=== PATIENT | female | born 1950 | race Caucasian/White ===

== ENCOUNTER 2017-03-12 11:42 | Emergency (ER) | payer OTHER ==
[~2017-03-12] VITALS: Ht 144.8 cm; Wt 37.2 kg
[~2017-03-12 11:42] MED LIST: ALBUTEROL1.25 MG/1 INH/SOL; ALBUTEROL2.5 MG/3 M INH/SOL; ALENDRONATE SOD70 M2 PO; ASPIRIN81 M4 PO; ATENOLOL50 M1 PO; LEVAQUIN500 M1 PO; LISINOPRIL20 M1 PO; PRAVASTATIN SOD20 M2 PO; PREDNISONE 10MG10 M1 PO; PREDNISONE10 M2 PO; PREDNISONE10 MG PO; PREDNISONE50 M1 PO; PROAIR HFA8.5 GM INH; TESSALON PERLE100 MG PO; TYLENOL EXTRA500 M2 PO; VENTOLIN HFA18 GM INH; VITAMIN D1000 UNIT PO; ZITHROMAX Z-PA250 M1 PO
[2017-03-12 11:45] VITALS: BP 134/90
[2017-03-12] MEDS ORDERED: SPIRIVA18 MCG INH (12:14)
[2017-03-12] MEDS ORDERED: BREO ELLIPTA 21 EACH PO (12:14)
[2017-03-12] MEDS ORDERED: PHENAZOPYRIDIN200 M3 PO (12:17)
--- NOTE | 2017-03-12 12:20 | ED GENERAL ADULT ---
History of Present Illness General Chief Complaint: Female Urogenital Problems Stated Complaint: ?UTI Source: patient Exam Limitations: no limitations Vital Signs & Intake/Output Vital Signs & Intake/Output Vital Signs Date Time Temp Pulse Resp B/P B/P Pulse O2 O2 Flow FiO2 Mean Ox Delivery Rate 03/12 1145 96.1 77 20 134/90 96 Room Air Allergies Coded Allergies: fluoxetine (From PROZAC) (Intermediate, HIVES 03/31/16) cyclobenzaprine (HIVES 03/31/16) ibuprofen (HIVES 03/31/16) Reconcile Medications Acetaminophen (Tylenol Extra Strength) 500 MG TABLET 1 TAB PO PAIN (Reported) Albuterol Sulfate (Proair Hfa) 8.5 GM HFA.AER.AD 2 PUF INH Q4-6 PRN PRN BREATHING PROBLEMS (Reported) Alendronate Sodium 70 MG TABLET 1 TAB PO QTUES BONE (Reported) in the morning, at least 30 minutes before the first food, beverage, or medication of the day Aspirin (Aspirin*) 81 MG TAB.CHEW 1 TAB PO DAILY HEART HEALTH (Reported) Atenolol 50 MG TABLET 1 TAB PO QPM HEART (Reported) Cephalexin (Keflex) 500 MG CAPSULE 1 CAP PO 4 TIMES/DAY UTI Cholecalciferol (Vitamin D3) (Vitamin D) 1,000 UNIT TABLET 1 TAB PO DAILY SUPPLEMENT (Reported) Fluticasone/Vilanterol (Breo Ellipta 200-25 Mcg INH) 200 MCG-25 MCG/DOSE BLST.W.DEV 1 PUFF PO DAILY BREATHING PROBLEMS (Reported) Lisinopril 20 MG TABLET 1 TAB PO DAILY HEART (Reported) Phenazopyridine HCl 200 MG TABLET 1 TAB PO TID PRN UTI (Reported) after food Phenazopyridine HCl (Pyridium) 100 MG TABLET 1 TAB PO TID dysuria Pravastatin Sodium 20 MG TABLET 1 TAB PO QPM CHOLESTEROL (Reported) Tiotropium [place] (Spiriva) 18 MCG CAP.W.DEV 1 CAP INH DAILY BREATHING PROBLEMS (Reported) Triage Note: PT TO ED C/O ? UTI. STATES BURNING WITH URINATION WELL BLOOD IN URINE. STARTED LAST NIGHT. PT HAD PYRIDIUM AT HOME, TOOK A DOSE LAST NIGHT. Triage Nurses Notes Reviewed? yes HPI: 66-year-old female with a history of recurrent headaches, hypertension, hyperlipidemia, COPD, osteoporosis, depression presenting with dysuria, hematuria, urinary frequency/urgency that started last night. Denies fevers, nausea, vomiting, abdominal pain, back pain, or vaginal discharge. (MATHEW SHIN,LITTLE) Past History Travel History Traveled to [place] past 21 day No Medical History Any Pertinent Medical History? 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 No (MATHEW SHIN,LITTLE) Review of Systems Review of Systems Constitutional: Denies: chills, fever, malaise, weakness. Respiratory: Reports: no symptoms. Cardiovascular: Reports: no symptoms. GI: Denies: abdominal pain, constipation, diarrhea, nausea, vomiting. Genitourinary: Reports: dysuria, frequency, hematuria, urgency. Denies: discharge. (MATHEW SHIN,LITTLE) Physical Exam Physical Exam General Appearance: well developed/nourished, no apparent distress, comfortable Head: atraumatic Respiratory: normal breath sounds, lungs clear Cardiovascular: regular rate/rhythm Gastrointestinal: soft, non-tender Rectal: No CVAT Core Measures ACS in differential dx? No CVA/TIA Diagnosis: No Severe Sepsis Present: No Septic Shock Present: No (LITTLE CARMONA PA-C) Progress Differential Diagnoses I considered the following diagnoses in my evaluation of the patient: [UTI versus pyelonephritis versus cervicitis versus PID] Plan of Care: Orders Procedure Date/time Status URINALYSIS 03/12 1147 Complete Laboratory Tests 03/12/17 1150: Urine Color DELLA, Urine Clarity HAZY H, Urine pH 6.0, Ur Specific [place] 1.015, Urine Protein 30 H, Urine Ketones NEG, Urine Nitrite POS H, Urine Bilirubin NEG, Urine Urobilinogen 1.0, Ur Leukocyte Esterase MOD H, Ur Microscopic SEDIMENT EXAMINED, Urine RBC 5-10 H, Urine WBC 50-75 H, Ur Epithelial Cells RARE, Urine Bacteria RARE H, Urine Mucus RARE, Urine Hemoglobin MOD H, Urine Glucose NEG Urine consistent with urinary tract infection, no signs of pyelonephritis including no CVA tenderness, fevers, nausea, vomiting. Given first dose Keflex ED, sent home with Rx for Keflex course. (LITTLE CARMONA PA-C) Initial ED EKG: none (LITTLE CARMONA PA-C) Departure Departure Disposition: HOME OR SELF CARE Condition: Stable Clinical Impression Primary Impression: UTI (urinary tract infection) Referrals: [facility] (PCP/Family) Additional Instructions: Take 500 mg of Keflex by mouth 4 times daily for 5 days. Take 100 mg of Pyridium by mouth 3 times daily for 2 days. Follow-up with her primary care provider for reevaluation in 2 days. Return to the ED for any new or worsening symptoms. Departure Forms: Customer Survey General Discharge Information Prescriptions: Current Visit Scripts Cephalexin (Keflex) 1 CAP PO 4 TIMES/DAY 5 Days Phenazopyridine HCl (Pyridium) 1 TAB PO TID #6 TAB (LITTLE CARMONA PA-C) PA/HARD HAT DIVER Co-Sign Statement Statement: ED Attending supervision documentation- x I saw and evaluated the patient. I have also reviewed all the pertinent lab results and diagnostic results. I agree with the findings and the plan of care as documented in the PA's/HARD HAT DIVER's documentation. I have reviewed the ED Record and agree with the PA's/HARD HAT DIVER's documentation. Additions or exceptions (if any) to the PAs/HARD HAT DIVER's note and plan are summarized below: [] (RAFAL NAVAS,DAMEON) Critical Care Note Critical Care Note Critical Care Time: non-applicable (LITTLE CARMONA PA-C)
[2017-03-12] MEDS ORDERED: PYRIDIUM100 M1 PO (13:00)
[2017-03-12] MEDS ORDERED: KEFLEX500 M1 PO (13:00)
== END 2017-03-12 13:08 ==
LOC: ERH 11:42
DX: N39.0 Urinary tract infection, site not specified (principal)
CPT/HCPCS: 81001